=== PATIENT | male | born 1990 | race African-American/Black ===

== ENCOUNTER 2017-09-10 23:34 | Emergency (ER) | payer OTHER ==
[~2017-09-10] VITALS: Ht 172.7 cm; Wt 82.3 kg
[2017-09-11 01:04] LABS: BASO % 0.4 % (0.0-1.0); EOS # 0.1 10^3/uL (0.0-0.50); EOS % 2.3 % (0.0-3.0); LYMPH # 2.1 10^3/uL (1.5-6.5); LYMPH % 36.8 % (24.0-44.0); MEAN CORPUSCULAR HEMOGLOBIN 30.2 pg (27.0-33.0); MEAN CORPUSCULAR HGB CONC 34.6 g/dl (32.0-36.5); MEAN CORPUSCULAR VOLUME 87.4 fl (80.0-96.0); MONO # 0.6 10^3/uL (0.0-0.8); MONO % 9.8 % (0.0-5.0); NEUTROPHILS # 2.9 10^3/uL (1.8-7.7); NEUTROPHILS % 50.7 % (36.0-66.0); PLATELET COUNT, AUTOMATED 244 10^3/uL (150-450); RED CELL DISTRIBUTION WIDTH 12.8 % (11.5-14.5); WHITE BLOOD COUNT 5.7 10^3/uL (4.0-10.0)
[2017-09-11 01:32] LABS: ANION GAP 7 MEQ/L (8-16); CALCIUM LEVEL 9.6 MG/DL (8.5-10.1); CARBON DIOXIDE LEVEL 28 MEQ/L (21-32); CHLORIDE LEVEL 106 MEQ/L (98-107); CREATININE FOR GFR 1.15 MG/DL (0.70-1.30); GLOMERULAR FILTRATION RATE > 60.0 (>60); GLUCOSE, FASTING 94 MG/DL (70-105); POTASSIUM SERUM 3.7 MEQ/L (3.5-5.1); SODIUM LEVEL 141 MEQ/L (136-145)
[2017-09-11 01:39] LABS: BLOOD UREA NITROGEN 13 MG/DL (7-18)
[2017-09-11 01:59] VITALS: BP 125/67
--- NOTE | 2017-09-11 08:06 | ECGEPIP ---
Stationary ECG Study [facility] - ED Test Date: 2017-09-11 Pat Name: AILEEN LOPES Department: Room: - Gender: M Pest Controller Assistant: af : [id number] Requested By: VALENCIA KENNEY Order Number: [id number] Reading MD: Alberto Hughes Measurements Intervals [place] Rate: 49 P: 63 DC: 190 QRS: 16 QRSD: 85 T: 8 QT: 401 QTc: 363 Interpretive Statements SINUS BRADYCARDIA NSTTW ABNORMALITIES BENIGN EARLY REPOLARIZATION NO PRIORS FOR COMPARISON Electronically Signed On 09-11-2017 8:06:08 EST by Alberto Hughes
--- NOTE | 2017-09-11 09:15 | REP ---
REASON: Chest pain. FINDINGS: The superior mediastinal structures are midline. The cardiac silhouette is unremarkable in size, shape, and position. The diaphragmatic surfaces of the lungs are regular, and the costophrenic angles are clear. The pulmonary hoewll are clear. The imaged osseous structures are intact. IMPRESSION: There is no acute cardiopulmonary disease. Signed by Rao Pratt DO 09/11/2017 09:32 A
== END 2017-09-11 02:08 | disposition home or self-care (01) ==
LOC: M ED 23:34
DX: F43.9 Reaction to severe stress, unspecified (principal); R07.89 Other chest pain; Z72.0 Tobacco use

== ENCOUNTER 2018-11-27 00:32 | Emergency (ER) | payer OTHER ==
[~2018-11-27] VITALS: Ht 172.7 cm; Wt 90.9 kg
--- NOTE | 2018-11-27 01:03 | REPVR ---
EXAM: CT Head Without Contrast EXAM DATE/TIME: 11/27/2018 12:52 AM CLINICAL HISTORY: 28 years old, male; Injury or trauma; Additional info: Tr TECHNIQUE: Axial computed tomography images of the head/brain without contrast. All CT scans at this facility use at least one of these dose optimization techniques: automated exposure control; mA and/or kV adjustment per patient size (includes targeted exams where dose is matched to clinical indication); or iterative reconstruction. COMPARISON: No relevant prior studies available. FINDINGS: There are no intra-or extra-axial hemorrhages or fluid collections. There is no mass effect or midline shift. Ventricles are symmetrical and nondilated for age. There are no focal parenchymal abnormalities. No calvarial fractures. IMPRESSION: No acute intracranial process. No intracranial hemorrhage. Electronically signed by: Kike Zaldivar On 11/27/2018 01:03:11 AM
[2018-11-27] MEDS ORDERED: ACETAMINOPHEN 325 MG TAB PO ONE (01:15)
[2018-11-27] MEDS ORDERED: KETOROLAC 60 MG/2 ML VIAL (J1885) IM ONE (01:45)
[2018-11-27 02:02] VITALS: BP 115/56
== END 2018-11-27 02:04 | disposition home or self-care (01) ==
LOC: M ED 00:32
DX: S00.93XA Contusion of unspecified part of head, initial encounter (principal); W10.8XXA Fall (on) (from) other stairs and steps, initial encounter; Y92.098 Other place in other non-institutional residence as the place of occurrence of the external cause; F17.200 Nicotine dependence, unspecified, uncomplicated
CPT/HCPCS: 70450; 96372; 99283; J1885